=== PATIENT | female | born 1980 | race Asian ===

== ENCOUNTER → 2024-05-09 12:34 | Outpatient (REF) | payer OTHER, SELFPAY | LOC: WDC 12:34 | PROVIDERS: ATTENDING PHYSICIAN Student in an Organized Health Care Education/Training Program | DX: Z12.31 Encounter for screening mammogram for malignant neoplasm of breast (principal) | CPT/HCPCS: 77063; 77067 ==

== ENCOUNTER 2025-04-12 06:53 | Inpatient (IN) | payer OTHER, SELFPAY ==
[2025-04-11 17:14] VITALS: BP 156/97
[2025-04-11 17:58] LABS: HCG, Urine Qualitative Screen Negative
[2025-04-11 18:02] LABS: Hematocrit 34.6 % (37.0-47.0); Hemoglobin 12.1 g/dL (12.0-16.0); Mean Corp Hgb Conc. 35.0 g/dL (33.0-37.0); Mean Corpuscular Volume 87.2 fL (81.0-99.0); Nucleated Red Blood Cells % 0 %; Platelet Count 142 10^3/uL (130-400); Red Cell Dist. Width 15.1 % (11.5-14.5)
--- NOTE | 2025-04-11 18:04 | ED.GENMED ---
History of Present Illness
<Ravin Edwards PA-C - Last Filed: 04/16/25 08:47>
General
Chief Complaint: Crisis Evaluation
Source: patient
Exam Limitations: none
Time Seen by Provider: 04/11/25 17:30
History of Present Illness
History of Present Illness:
45-year-old female otherwise healthy presents with and mother who states the patient has been going through mental health crisis. Patient admits to hearing voices that are laughing at her. She was convinced she had a baby inside of her and
she started poking herself with a pair of scissors. She also admits to cutting her wrist today with a pair of scissors. 3 days ago she states she took a half a bottle of Tylenol in an attempt to hurt herself. She admits to vomiting shortly after
doing this. She denies chest pain or shortness of breath. She does not take any medications regularly. She has a history of alcohol abuse. Last alcoholic beverage was about 3 weeks ago. She admits to suicidal thoughts. She denies thoughts of
harming others. She is here voluntarily
Phy Exam
<Ravin Edwards PA-C - Last Filed: 04/16/25 08:47>
Physical Exam
Physical Exam:
General: Well-appearing female no acute respiratory distress
HEENT: Normocephalic, atraumatic
Heart: Regular rate and rhythm
Lungs: Clear no wheeze
Skin: Superficial self-inflicted lacerations in the transverse direction across the volar left wrist. Multiple small abrasions/lacerations to the abdomen. All superficial in nature
Abdomen is soft nontender nondistended
Psychiatric exam: Admits to suicidal thoughts admits to auditory hallucinations. Admits to taking Tylenol in excess several days ago. Denying thoughts of harming others
Course
<Ravin Edwards PA-C - Last Filed: 04/16/25 08:47>
Orders/Labs/Results
Orders:
Orders
04/11/25 Breakfast
Regular
At Your Request: Full Participation
Does patient need a safe tray?: Yes
04/11/25 17:22
1:1 Observation - Suicide/ Violent Behavior As Directed
04/11/25 17:29
Test Result ONCE
04/11/25 17:46
Acetaminophen Urgent
Alcohol Urgent
Complete Blood Count/With Diff Urgent
Comprehensive Metabolic Panel Urgent
HCG, Urine Qualitative Screen Urgent
Date Specimen was Collected: 04/11/25
Time Specimen was Collected: 17:28
Lipase Urgent
Comment: ADD ON
Magnesium Urgent
Comment: ADD ON
Salicylate Urgent
Urine Drug Abuse Screen Urgent
Date Specimen was Collected: 04/11/25
Time Specimen was Collected: 17:28
04/11/25 18:28
Add On- LAB Urgent
Tests Added?: lipase
04/11/25 18:50
Electrocardiogram (*1) Urgent
Reason for Study: Chest Pain
EKG- Treatment ONCE
04/11/25 18:53
Potassium Chloride [KCl] 40 meq PO NOW STA
04/11/25 18:55
Add On- LAB Urgent
Tests Added?: magnesium
04/11/25 19:15
Potassium Chloride [KCl] 40 meq 0.9% Sodium Chloride 250 ml [Nss] 250 ml IV NOW
04/11/25 19:38
diazePAM [Valium Injection] 5 mg IV NOW STA
04/11/25 20:43
Admit/Transfer Patient As Directed
Co-Sign Provider:
Level of Care: Observation services
Assign to:: Telemetry
Physician / Group: lon
Diagnosis: sucidial thoughts
Reason for Telemetry: Other
Other Reason for Telemetry: hypokalemia
Date to Stop Telemetry: 04/13/25
Time to Stop Telemetry: 11:00
Reason for Hospitalization: hypokalemia
sucidal thoughts
PRN Pain Medication Management As Directed
May give lesser potent ordered pain med per pt: Yes
preference::
Protocol:: Medication orders for pain may be administered in a
manner that supports deferring to patient preference
when the pt is:
- Requesting an ordered lesser potent pain medication.
Least to most potent pain medications are defined
as: acetaminophen < NSAID < tramadol < opioids
(morphine, oxycodone, hydromorphone).
- Requesting a lesser dose of the same medication IF
ORDERED.
- Requesting a less intrusive route of administration
if both routes are prescribed by the provider (PO <
IV).
04/11/25 20:44
Code Status As Directed
Resuscitation Status: Full Code
04/11/25 20:48
Acetylcysteine [Acetadote] 7,620 mg 0.45% Sodium Chloride 250 ml [0.45%NaCl] 200 ml IV NOW
04/11/25 20:57
diazePAM [Valium Injection] 5 mg IV NOW STA
04/11/25 21:18
Consult Psychiatry [PSYCHIATRY CONSULT] Routine
Consulting Provider: Kal Baird
Was physician already notified: Yes
04/11/25 21:43
Bisacodyl [Dulcolax] 10 mg RECTAL [id number] PRN
Docusate W/Senna [Senokot-S] 1 tablet PO BIDPRN PRN
Polyethylene Glycol Powder [Miralax] 17 grams PO DAILYPRN PRN
diazePAM [Valium Injection] 5 mg IV Q6HPRN PRN
04/11/25 21:43
Activity As Directed
Activity Level: As Tolerated
Vital Signs As Directed
Frequency: Per unit guidelines
DX Deep Vein Thrombosis Video Routine
04/11/25 22:00
Acetylcysteine [Acetadote] 2,540 mg 0.45% Sodium Chloride 500 ml [0.45%NaCl] 500 ml IV ONCE
04/11/25 23:07
Case Management Consult ONCE
Case Management Consult: Suicide Risk
04/12/25 00:41
Potassium Stat
04/12/25 02:04
diazePAM [Valium Injection] 5 mg IV NOW STA
04/12/25 06:00
Acetylcysteine [Acetadote] 5,080 mg 0.45% Sodium Chloride 1000 ml [0.45%NaCl] 1,000 ml IV ONCE
04/12/25 06:52
Consult Gastroenterology [GASTROINTESTINAL CONSULT] Routine
Consulting Provider: Deangelo Kc
Was physician already notified: Yes
Reason for consult: Elevated liver enzymes
04/12/25 07:39
Comprehensive Metabolic Panel IN AM
04/12/25 18:00
Enoxaparin Sodium [Lovenox] 40 mg SC QPM
04/13/25 11:00
DC Protocol for Telemetry ONCE
Abnormal Lab Results
04/11/25
17:46
RBC 3.97 L 10^6/uL
(4.20-5.40)
Hct 34.6 L %
(37.0-47.0)
RDW 15.1 H %
(11.5-14.5)
MPV 11.2 H fL
(7.4-10.4)
Absolute Lymphs (auto) 0.7 L 10^3/uL
(1.2-3.4)
Neutrophils % 80.9 H %
(42.2-75.2)
Lymphocytes % 9.3 L %
(20.5-51.1)
Potassium 2.6 L* mmol/L
(3.5-5.1)
Glucose 121 H mg/dl
(70-99)
Magnesium 2.4 H mg/dl
(1.6-2.3)
AST 404 H U/L
(14-36)
ALT 541 H* U/L
(0-35)
Salicylates < 1.0 L mg/dl
(2.0-20.0)
Acetaminophen < 10 L ug/ml
(10-30)
04/11/25 17:46
04/12/25 00:41
Vital Signs
Initial and Last Documented VS:
Initial Vital Signs
Temp Pulse Resp BP Pulse Ox
98.2 F 90 16 156/97 100
04/11/25 17:14 04/11/25 17:14 04/11/25 17:14 04/11/25 17:14 04/11/25 17:14
Last Documented Vital Signs
Temp Pulse Resp BP Pulse Ox
97.9 F 85 16 146/92 99
04/13/25 15:25 04/13/25 15:25 04/13/25 15:25 04/13/25 15:25 04/13/25 15:25
<Juanita Landin MD - Last Filed: 04/11/25 21:42>
Orders/Labs/Results
Orders:
Orders
04/11/25 Breakfast
Regular
At Your Request: Full Participation
Does patient need a safe tray?: Yes
04/11/25 17:22
1:1 Observation - Suicide/ Violent Behavior As Directed
04/11/25 17:29
Test Result ONCE
04/11/25 17:46
Acetaminophen Urgent
Alcohol Urgent
Complete Blood Count/With Diff Urgent
Comprehensive Metabolic Panel Urgent
HCG, Urine Qualitative Screen Urgent
Date Specimen was Collected: 04/11/25
Time Specimen was Collected: 17:28
Lipase Urgent
Comment: ADD ON
Magnesium Urgent
Comment: ADD ON
Salicylate Urgent
Urine Drug Abuse Screen Urgent
Date Specimen was Collected: 04/11/25
Time Specimen was Collected: 17:28
04/11/25 18:28
Add On- LAB Urgent
Tests Added?: lipase
04/11/25 18:50
Electrocardiogram (*1) Urgent
Reason for Study: Chest Pain
EKG- Treatment ONCE
04/11/25 18:53
Potassium Chloride [KCl] 40 meq PO NOW STA
04/11/25 18:55
Add On- LAB Urgent
Tests Added?: magnesium
04/11/25 19:15
Potassium Chloride [KCl] 40 meq 0.9% Sodium Chloride 250 ml [Nss] 250 ml IV NOW
04/11/25 19:38
diazePAM [Valium Injection] 5 mg IV NOW STA
04/11/25 20:43
Admit/Transfer Patient As Directed
Co-Sign Provider:
Level of Care: Observation services
Assign to:: Telemetry
Physician / Group: lon
Diagnosis: sucidial thoughts
Reason for Telemetry: Other
Other Reason for Telemetry: hypokalemia
Date to Stop Telemetry: 04/13/25
Time to Stop Telemetry: 11:00
Reason for Hospitalization: hypokalemia
sucidal thoughts
PRN Pain Medication Management As Directed
May give lesser potent ordered pain med per pt: Yes
preference::
Protocol:: Medication orders for pain may be administered in a
manner that supports deferring to patient preference
when the pt is:
- Requesting an ordered lesser potent pain medication.
Least to most potent pain medications are defined
as: acetaminophen < NSAID < tramadol < opioids
(morphine, oxycodone, hydromorphone).
- Requesting a lesser dose of the same medication IF
ORDERED.
- Requesting a less intrusive route of administration
if both routes are prescribed by the provider (PO <
IV).
04/11/25 20:44
Code Status As Directed
Resuscitation Status: Full Code
04/11/25 20:48
Acetylcysteine [Acetadote] 7,620 mg 0.45% Sodium Chloride 250 ml [0.45%NaCl] 200 ml IV NOW
04/11/25 20:57
diazePAM [Valium Injection] 5 mg IV NOW STA
04/11/25 21:18
Consult Psychiatry [PSYCHIATRY CONSULT] Routine
Consulting Provider: Kal Baird
Was physician already notified: Yes
04/11/25 21:43
Bisacodyl [Dulcolax] 10 mg RECTAL [id number] PRN
Docusate W/Senna [Senokot-S] 1 tablet PO BIDPRN PRN
Polyethylene Glycol Powder [Miralax] 17 grams PO DAILYPRN PRN
diazePAM [Valium Injection] 5 mg IV Q6HPRN PRN
04/11/25 21:43
Activity As Directed
Activity Level: As Tolerated
Vital Signs As Directed
Frequency: Per unit guidelines
DX Deep Vein Thrombosis Video Routine
04/11/25 22:00
Acetylcysteine [Acetadote] 2,540 mg 0.45% Sodium Chloride 500 ml [0.45%NaCl] 500 ml IV ONCE
04/11/25 23:07
Case Management Consult ONCE
Case Management Consult: Suicide Risk
04/12/25 00:41
Potassium Stat
04/12/25 02:04
diazePAM [Valium Injection] 5 mg IV NOW STA
04/12/25 06:00
Acetylcysteine [Acetadote] 5,080 mg 0.45% Sodium Chloride 1000 ml [0.45%NaCl] 1,000 ml IV ONCE
04/12/25 06:52
Consult Gastroenterology [GASTROINTESTINAL CONSULT] Routine
Consulting Provider: Deangelo Kc
Was physician already notified: Yes
Reason for consult: Elevated liver enzymes
04/12/25 07:39
Comprehensive Metabolic Panel IN AM
04/12/25 18:00
Enoxaparin Sodium [Lovenox] 40 mg SC QPM
04/13/25 11:00
DC Protocol for Telemetry ONCE
Abnormal Lab Results
04/11/25
17:46
RBC 3.97 L 10^6/uL
(4.20-5.40)
Hct 34.6 L %
(37.0-47.0)
RDW 15.1 H %
(11.5-14.5)
MPV 11.2 H fL
(7.4-10.4)
Absolute Lymphs (auto) 0.7 L 10^3/uL
(1.2-3.4)
Neutrophils % 80.9 H %
(42.2-75.2)
Lymphocytes % 9.3 L %
(20.5-51.1)
Potassium 2.6 L* mmol/L
(3.5-5.1)
Glucose 121 H mg/dl
(70-99)
Magnesium 2.4 H mg/dl
(1.6-2.3)
AST 404 H U/L
(14-36)
ALT 541 H* U/L
(0-35)
Salicylates < 1.0 L mg/dl
(2.0-20.0)
Acetaminophen < 10 L ug/ml
(10-30)
04/11/25 17:46
04/12/25 00:41
Vital Signs
Initial and Last Documented VS:
Initial Vital Signs
Temp Pulse Resp BP Pulse Ox
98.2 F 90 16 156/97 100
04/11/25 17:14 04/11/25 17:14 04/11/25 17:14 04/11/25 17:14 04/11/25 17:14
Last Documented Vital Signs
Temp Pulse Resp BP Pulse Ox
97.9 F 85 16 146/92 99
04/13/25 15:25 04/13/25 15:25 04/13/25 15:25 04/13/25 15:25 04/13/25 15:25
<Ravin Edwards PA-C - Last Filed: 04/16/25 08:47>
MDM/Problems Addressed
Differential Diagnosis Includes:
Patient here for suicidal ideation and new onset hallucinations. Concern for new psychotic disorder versus depression. All of the self-inflicted lacerations are superficial and do not require any sutures or closure. Will check labs and Tylenol
level. Crisis consult placed
<CL Gray Last Filed: 04/16/25 08:47>
*Pulse Oximetry
SaO2: 100
Oxygen Mode of Delivery: Room air
Patient hypoxic: no
*Critical Care Note
Total Time (30-74mins, 75-104mins- exclusive of procedures): Not Applicable
<Ravin Edwards PA-C - Last Filed: 04/16/25 08:47>
Update Note
Update Note:
Labs demonstrate acute hypokalemia with a value of 2.6. LFTs are elevated as well. Crisis saw the patient who agrees the patient would benefit from inpatient psychiatric treatment when medically stable. 40 mg of IV and p.o. potassium was ordered.
Patient was getting quite anxious while here. IV Valium was ordered which tended to help. Tylenol level here is undetectable. Alcohol level here is undetectable. Chest plan with patient and in the room. Will admit
ED Attending Note
<Ravin Edwards PA-C - Last Filed: 04/16/25 08:47>
-
Portions of this chart may have been created with voice recognition software.� Occasional wrong word or��sound alike� substitutions may have occurred due to the inherent limitations of voice recognition software.
<Juanita Landin MD - Last Filed: 04/11/25 21:42>
ED Attending Note
I performed a history and physical exam of patient and discussed management with resident, I reviewed resident's note and agree with documented findings and plan of care.: Yes
ED Attending Note:
Patient appears well and nontoxic. Lungs are clear. Abdomen is soft and nontender. Patient is calm and cooperative
Discharge Plan
Departure
Patient Disposition: Admit
Date of Disposition: 04/11/25
Time of Disposition: 20:08
Presentation/result/management discussed w/ accepting MD/DO: Hospitalist
Discharge Problem:
Acute hypokalemia
Interventions
Interventions:
*Risk Screen - Suicide Last Done: 04/11/25 17:19
*General Assessment Last Done: 04/11/25 18:14
*Neglect/Abuse Screening Last Done: 04/11/25 18:14
*ED- Fall Risk Assessment Last Done: 04/11/25 18:14
*ED COVID-19 Vaccine History Last Done: 04/11/25 18:14
*Nursing Disposition Last Done: 04/11/25 22:00
ED-Psychological Assessment Last Done: 04/11/25 17:56
Discharge Date and Time
Discharge Date/Time: 04/11/25 22:01
[2025-04-11 18:26] LABS: ALT (SGPT) 541 U/L (0-35); AST (SGOT) 404 U/L (14-36); Acetaminophen < 10 ug/ml (10-30); Albumin 4.3 g/dl (3.5-5.0); Alkaline Phosphatase 54 U/L (38-126); Blood Urea Nitrogen 10 mg/dl (7-17); Calcium 9.1 mg/dl (8.4-10.2); Carbon Dioxide 28 mmol/L (22-30); Chloride 99 mmol/L (98-107); Glucose 121 mg/dl (70-99); Potassium 2.6 mmol/L (3.5-5.1); Salicylate < 1.0 mg/dl (2.0-20.0); Sodium 135 mmol/L (135-145); Total Protein 7.0 g/dl (6.3-8.2); eGFR > 60.00
[2025-04-11 18:40] LABS: Lipase 93 U/L (23-300)
[2025-04-11 19:15] LABS: Magnesium 2.4 mg/dl (1.6-2.3)
[2025-04-11] MEDS: KCL 40 MEQ PO (19:19)
[2025-04-11] MEDS: KCL 270 MEQ IV (19:28)
[2025-04-11] MEDS: VALIUM INJECTION 5 MG IV ×2 (19:41→21:29)
--- NOTE | 2025-04-11 20:07 | HPS.HSE ---
Addendum entered and electronically signed by Ilya Stone DO 04/11/25 21:25:
Patient is a 45y F with PMH significant for depression and alcohol use disorder who presents to ED for evaluation of paranoia, agitation and suicide attempt at home. History obtained from patient and family at the bedside.
Patient / family just returned from a trip to [place] last weekend. Patient returned separate from / after her and daughters. She has a reported history of significant alcohol intake with a liter of alcohol per day on average. Her last
drink was reportedly 3 weeks ago. Since return home she has been restless, agitated, paranoid. She has stated that she hears voices and she is very suspicious of those around her - including family.
Today patient attempted to cut her wrist with a pair of scissors. She also stabbed at her abdomen stating that their was a baby in there. also noted today that 1/2 bottle of Tylenol was missing.
Apparently patient took this three days ago - also in an attempt to end her life. Patient states that she vomited very shortly after ingesting the Tylenol tabs.
Patient has history of depression and alcohol use disorder - but no prior suicidal ideations, psychiatric hospitalizations, etc.
In the ED, patient is restless / anxious and agitated.
Ass:
Suicidal Ideation / Attempt
Paranoia / ? Schizophrenia v schizoaffective disorder
Alcohol Use Disorder
Acetaminophen Overdose
Abnormal LFTs
Hypokalemia
Plan:
Admit for further evaluation and treatment.
Replace potassium IV and PO - repeat labs round midnight and provide additional replacement if necessary.
Mg level is adequate.
IV BZDs as needed for agitation / anxiety.
Formal Psych eval in the AM.
Patient amenable to inpatient psych treatment at present.
Alcohol level today is undetectable.
Acetaminophen level is undetectable 3 days after reported ingestion.
With abnormal LFTs, will pursue Acetadote course - though not likely to be very effective this long after ingestion.
Follow for changes in LFTs, new / worsening symptoms, etc.
Original Note:
Family Physician
-
Family Physician:
Chief Complaint
-
sucidial thoughts
History of Present Illness
45 year old with PMH for alcohol abuse, depression presented to us with suicidal attempt from home. patient just came back from [place] last weekend and has not slept very well since she came back. as per very restless. noted her
talking to herself. she startle with very little noise. she seemed very scared. she was suspiciously staring at him. today the found that she took half bottle of Tylenol. today she cut her wrist with a pair scissors. she also poked herself
with pair of scissors.thinking she has babies in her. her last alcoholic beverage was 3 weeks ago.
upon arrival noted potassium 2.6. Patient received acetylcysteine, Valium, potassium chloride, KCl IV in the ER. Admitting for further management
Medical History
Past Medical History
Past Medical History: Reports Other
Additional Past Medical History:
alcohol abuse
Depression
Past Surgical History: Reports None
Social History
Tobacco: Non-smoker
Alcohol: Chronic Alcoholic
Drug: None
Personal:
Living: With Family
Family History
Family History: Not pertinent
Allergies / Home Medications
Allergies reflects when Allergies were last updated in [facility].
Home Medications with original date entered in [facility]
Allergy/Medication List:
Allergies
Allergy/AdvReac Type Severity Reaction Status Date / Time
No Known Allergies Allergy Unverified 04/11/25 17:19
Review of Systems
-
Constitutional: Reports No Symptoms
EENT: Reports No Symptoms
Respiratory: Reports No Symptoms
Cardiac: Reports No Symptoms
Abdomen/GI: Reports No Symptoms
: Reports No Symptoms
Musculoskeletal: Reports No Symptoms
Skin: Reports No Symptoms
Neurological: Reports No Symptoms
Endocrine: Reports No Symptoms
Hematologic/Lymphatic: Reports No Symptoms
Psych: Reports No Symptoms
Physical Exam
Vital Signs
Vital Signs
Temp Pulse Resp BP Pulse Ox
98.2 F 90 16 156/97 100
04/11/25 17:14 04/11/25 17:14 04/11/25 17:14 04/11/25 17:14 04/11/25 18:10
Physical Exam
General: Well Developed, Well Nourished and No Apparent Distress
HEENT: NormoCephalic, Moist mucous membranes and Atraumatic
Respiratory: Clear
Cardiac: S1/S2 and Regular Rhythm; No Murmur or Rub
GI: Soft, Non Tender, Non Distended and Normal Bowel Sounds; No Organomegaly
Rectal: Deferred by Provider
Musculoskeletal: No Clubbing, No Cyanosis and No Edema
Skin: Rash and Other (wrist cut)
Neuro: AO x 3 and Nonfocal/grossly intact
Psych: Calm
Laboratory Results
-
04/11/25 17:46
04/11/25 17:46
Laboratory Results
Total Bilirubin 1.1 mg/dl (0.2-1.3) 04/11/25 17:46
AST 404 U/L (14-36) H 04/11/25 17:46
ALT 541 U/L (0-35) H* 04/11/25 17:46
Alkaline Phosphatase 54 U/L (38-126) 04/11/25 17:46
Lipase 93 U/L (23-300) 04/11/25 17:46
Data Reviewed
-
Lab Data: Labs Reviewed by me
Impression/Plan
-
#suicidal thoughts
#Tylenol intentional overdose
-psych consulted
-1:[address]
-vallum prn
-acetylcysteine continued
#hypokalemia
-k 2.6
-iv kcl in ER
-BMp in am
#transaminitis
#hxt of chronic alcohol abuse, last drink 3 weeks ago.
-AST 404, [id number]
- Patient denies any abdominal pain
- Trend LFTs
# DVT prophylaxis
- Lovenox
# CODE STATUS
- Full code
[2025-04-11 20:25] VITALS: BP 142/91
[2025-04-11 21:45] VITALS: BP 136/82; BMI 19.2
--- NOTE | 2025-04-11 22:00 | PTCARENOTE ---
Pt arrived to floor from ED with at her bedside and helped with admission Questions. Pt appeared slightly sedated, yet restless and fidgety. Pt withdrawn but would answer questions mostly appropriately. pt appears to give understanding, yet
in a paranoid state, odd impulsive behaviors (grabbing at equipment, looking at things as if in bewilderment), ruminating thoughts, understanding waxes and wanes and needed interventions and plan of care explained repeatedly. VSS, placed on tele,
PCT assigned to room for 1:1 observation.
[2025-04-12] MEDS: ACETADOTE 238.1 MG IV (00:15)
[2025-04-12] MEDS: VALIUM INJECTION 5 MG IV (01:04)
[2025-04-12 01:05] LABS: Potassium 4.0 mmol/L (3.5-5.1)
--- NOTE | 2025-04-12 02:00 | PTCARENOTE ---
Pt fell asleep for a short period of time. When pt awakened for schedule labs at 0030 pt became increasing paranoid, agitated, impulsive and tearful. PRN agitation meds administered. Pt agitation continued, persistently refusing tele monitor, not
believing its real. Pt refusing IVPB medications, not believing that the IV pole is working right or that the medication she is getting is correct. Many unsuccessful attempts made to try educate/reassure pt, unfortunately these attempts only
agitated pt more. Pt began ruminating about seeing a social services designee, calling several of the 1800 support #s listed in the welcome folder requesting help to leave. [employer] made aware of pt agitation and refusal of medications and tele monitor. Advised to
monitor pt off of IVPB med and off of tele for now, with PRN medications for agitation as needed. Pt appeared to be content with this course of action and complied with returning to bed to try and rest. 1:1 maintained.
[2025-04-12 03:55] VITALS: BP 152/95
--- NOTE | 2025-04-12 06:29 | PTCARENOTE ---
Pt behavior becoming increasing bizarre and restless throughout night. Pt has been in and out of bed every few mins, brushed her teeth 5 times, pacing the room, ruminating about the keyboard for the tv, hallucinating about a man in the room.
Attempted to ask pt about PRN medication, but Pt refusing to let staff touch her after getting last set of VS, at which time the pt falsely accused PCT of trying to give her 'unauthorized medications' when PCT attempted to take her temperature. SHANK BURNISHER
aware
[2025-04-12] MEDS: ACETADOTE IV (07:49)
[2025-04-12] MEDS: NSS (PRESERVATIVE FREE) IV (07:56)
[2025-04-12] MEDS: PROTONIX IV IV (07:57)
[2025-04-12 08:20] LABS: INR 1.10; PT 14.5 Sec (11.4-14.6)
[2025-04-12 08:40] LABS: ALT (SGPT) 464 U/L (0-35); AST (SGOT) 212 U/L (14-36); Albumin 4.6 g/dl (3.5-5.0); Alkaline Phosphatase 55 U/L (38-126); Blood Urea Nitrogen 9 mg/dl (7-17); Calcium 9.7 mg/dl (8.4-10.2); Carbon Dioxide 23 mmol/L (22-30); Chloride 106 mmol/L (98-107); Estimated Creatinine Clearance 91 ml/min; Glucose 102 mg/dl (70-99); Potassium 3.7 mmol/L (3.5-5.1); Sodium 139 mmol/L (135-145); Total Protein 7.4 g/dl (6.3-8.2); eGFR > 60.00
[2025-04-12 08:43] VITALS: BP 130/85
[2025-04-12] MEDS: ACETADOTE 1025.4 MG IV (08:50)
--- NOTE | 2025-04-12 09:42 | W.PN.HOSP.TC ---
Today's Communication/Plan
-
PT/INR
repeat LFT, f/w GI recommendations
Use PRN Diazepam
Thiamin
f/w Psych recommendations
Assessment / Plan
Assessment / Plan
Physical Exam
General: Well Developed, Well Nourished and No Apparent Distress
HEENT: NormoCephalic, Moist mucous membranes and Atraumatic
Respiratory: Clear
Cardiac: S1/S2 and Regular Rhythm; No Murmur or Rub
GI: Soft, Non Tender, Non Distended and Normal Bowel Sounds; No Organomegaly
Rectal: Deferred by Provider
Musculoskeletal: No Clubbing, No Cyanosis and No Edema
Skin: Rash and Other (wrist cut)
Neuro: AO x 3 and Nonfocal/grossly intact
Psych: Calm
A/P:
#suicidal thoughts
She seems anxious at times
but willing to follow commands
f/w Psych recommendations
PRN Diazepam
#Tylenol intentional overdose
Do stat PT/INR to assess liver function
Repeat LFT later today also. LAST/ALT seem to start trending down
Consult GI
Add PPI
-acetylcysteine continued
#hypokalemia
Resolved.
history of ETOH in recent past
Will add thiamin
# DVT prophylaxis
- Lovenox
# CODE STATUS
- Full code
Total time spent to see the patient, examine the patient, review data and lab results, discuss treatment plan with patient, at bed side, nursing staff around 55 minutes
Anticipated Discharge: > 48 hours
Subjective/Interval History
-
Date of Service: April 12, 2025
No chest pain
No nausea
No abdominal pain
Objective Data
-
Labs:
Laboratory Results
04/12/25 04/12/25
00:41 07:39
PT 14.5
INR 1.10
Sodium 139
Potassium 4.0 D 3.7
Chloride 106
Carbon Dioxide 23
BUN 9
Creatinine 0.6
Glucose 102 H
Calcium 9.7
Total Bilirubin 1.2
AST 212 H
ALT 464 H
Alkaline Phosphatase 55
Vital Signs:
Vital Signs
Temp Pulse Resp BP Pulse Ox
98.3 F 93 20 130/85 100
04/12/25 08:43 04/12/25 08:43 04/12/25 08:43 04/12/25 08:43 04/12/25 08:43
I&O
04/11/25 04/12/25 04/13/25
06:59 06:59 06:59
Intake Total 960 / 960 240 / 240
Balance 960 / 960 240 / 240
[2025-04-12 11:36] VITALS: BP 158/100
--- NOTE | 2025-04-12 12:12 | W.PN.UPDATE ---
Update Note
Progress Note Update
Psychiatric Evaluation dictated.
Patient has been drinking heavily up to one bottle of spirits while in [place] on vacation for about 2 weeks, came back on 04/05 and stopped. Since than noticed psychotic symptoms which she never had before particularly suspecting he implanted
some device in her abdomen and that he has cameras in his eyes. On Sunday she took O?D of Tylenol, abut half bottle, not sure how many, level on admission negligible. on Sunday she superficially cut her wrist and pricked her abdomen also
superficially.
Heavy drinking has been going on for 3 years, initially did not know but found out prior to June 2024 , at that point she went to rehab in [place]. Maintained sobriety till october 2024 when she relapsed on vacation in [facility].
Currently is rather suspicious , extra vigilant and difficult to interview needing redirection. Worries about who wants a divorce and possibly not being able to see her children, 13 anf 10 of age. is worried about her having driven
drunk with the children, wants a divorce but also will help with getting her treatment.
She is at this time not sure id she wants to live without access to her children.
Question is as to wheter this recent psychosis is related to stoping her drinking abrumpty although she has no physical symptoms of withdrawal.
I would recommend inpatient dual diagnosis unit.
--- NOTE | 2025-04-12 12:24 | CON.GI ---
Addendum entered and electronically signed by Deangelo Kc MD 04/12/25 13:49:
I saw and evaluated the patient. I reviewed the resident�s note and agree with findings and plan as documented in the resident�s note.
45yo female presents after attempting to harm herself and took 1/2 bottle Tylenol on 04/08. She has hx heavy EtOH and went to in rehab last fall, had relapsed on most recent trip to [facility]. Has not drank since returning to 04/05. Denies abd
pain, n/v. Has exhibited paranoid behavior. reports she did not sleep well since returning from [facility]. No prior know hx liver disease. Tylenol <10 yesterday at 5pm, 3 days after reported ingestion. Bili 1.1, alk phos 54, INR 1.1, all
normal. AST 404 on admission, repeat 212 this am. ALT 541 on admission, 464 on repeat.
REC:
Currently on NAC protocol and due to finish around midnight
AST/ALT trending down since admission. Rest of LFTs and INR normal
Check repeat LFTs at 6pm and if continuing to improve, can finish NAC at midnight
Original Note:
Consultation
-
Date/Time Consultation Requested: 04/12/25 06:52
Date/Time Consultation Performed: 04/12/25 11:30
Requesting Provider: Yair Badillo MD
Performing Provider: Arian Orozco DO (Resident); Deangelo Kc MD
Reason for Consultation: Elevated Liver Enzymes
Medical History
Chief Complaint / HPI
Chief Complaint: Suicidal Thoughts
History of Present Illness:
45F with a PMHx significant for alcohol abuse, and major depressive disorder who presented to the emergency department s/p suicide attempt. Per primary history, the patient just came back from [place] last weekend and has been having sleeping issues
and has been restless, appearing to be talking to herself, agitated and paranoid. She is very suspicious of those around her. Yesterday, the patient attempted to cut her wrists with a pair of scissors and attempted to stab her abdomen thinking there
was a baby inside. The endorsed a bottle of Tylenol that had gone missing. In the emergency department, patient had an undetectable EtOH level, acetaminophen level < 10, elevated LFTs. Patient was started on NAC out of caution and we were
consulted to comment on duration of treatment.
Patient is cooperative with the interview but seems unconfident in some of her answers. On interview, the patient endorses that she took the Tylenol 4 days ago. She notes taking a handful of pills and ingesting them but then vomiting them shortly
after. She does not know the exact number of pills or the strength of the pills. She endorses not having any abdominal pain, nausea, vomiting, changes in stools, jaundice, icterus or easy bleeding/bruising between time of ingestion and presentation.
She describes her drinking history of drinking as 'opening a bottle of champagne to have one glass, but ending up drinking the bottle'. She says that her last drink was approximately 1 week ago. She was in inpatient rehab in June and stopped
drinking after. She relapsed during her trip to [place]. She endorses one drinking episode during her trip where she thinks she only shared a bottle of wine with a friend and then proceeded to throw up. She denies abdominal pain, nausea or vomiting at
this time.
Patient does not take any OTC or rx medications on a daily basis but notes that her daughter takes lisdexamfetamine for ADHD and she has been taking some of her pills recently. She endorses taking some vitmain supplements, but denies any herbal
medications. Notes drinking teas, but denies any herbal varieties.
Past Medical History
Past Medical History: Other (EtOH abuse, depression)
Past Surgical History: None
Social History
Tobacco: Non-Smoker
Alcohol: Chronic Alcoholic
Drug: None
Personal:
Living: With Family
Family History
Family History: Other (Denies a family history of liver disease or easy bleeding. )
Allergies / Home Medications
Allergy/AdvReac Type Severity Reaction Status Date / Time
No Known Allergies Allergy Unverified 04/11/25 17:19
Review of Systems
-
History Source: Patient
All other systems: A 12 pt ROS was Negative except as stated above in HPI
Vital Signs
Temp Pulse Resp BP Pulse Ox
98.3 F 76 20 158/100 100
04/12/25 11:36 04/12/25 11:36 04/12/25 11:36 04/12/25 11:36 04/12/25 11:36
Physical Exam
Exam
General: Comfortable and Other (Does not appear to be in pain. Cooperative. Appears suspicious. Poor eye contact. )
HEENT: Normocephalic and Anicteric
GI: Soft, Non Tender, Non Distended and Normal Bowel Sounds
Skin: Warm and Other (Nonjaundiced. )
Neuro: Awake, Alert, Oriented and Other (No asterixis, EOMI intact without nystagmus)
Psych: Calm and Other (appears suspicious; tracks sudden movements or sounds )
Results
WBC 7.0 10^3/uL (4.8-10.8) 04/11/25 17:46
Hgb 12.1 g/dL (12.0-16.0) 04/11/25 17:46
Hct 34.6 % (37.0-47.0) L 04/11/25 17:46
MCV 87.2 fL (81.0-99.0) 04/11/25 17:46
Plt Count 142 10^3/uL (130-400) 04/11/25 17:46
Absolute Neuts (auto) 5.7 10^3/uL (1.4-6.5) 04/11/25 17:46
PT 14.5 Sec (11.4-14.6) 04/12/25 07:39
INR 1.10 04/12/25 07:39
Sodium 139 mmol/L (135-145) 04/12/25 07:39
Potassium 3.7 mmol/L (3.5-5.1) 04/12/25 07:39
Chloride 106 mmol/L (98-107) 04/12/25 07:39
Carbon Dioxide 23 mmol/L (22-30) 04/12/25 07:39
BUN 9 mg/dl (7-17) 04/12/25 07:39
Creatinine 0.6 mg/dL (0.6-1.0) 04/12/25 07:39
Calcium 9.7 mg/dl (8.4-10.2) 04/12/25 07:39
Total Bilirubin 1.2 mg/dl (0.2-1.3) 04/12/25 07:39
AST 212 U/L (14-36) H 04/12/25 07:39
ALT 464 U/L (0-35) H 04/12/25 07:39
Alkaline Phosphatase 55 U/L (38-126) 04/12/25 07:39
Lipase 93 U/L (23-300) 04/11/25 17:46
Assessment / Plan
-
Tracy John is a 45F with a past medical history of alcohol abuse disorder s/p inpatient rehab in June and recent relapse, last drink approximately 1 week ago, and major depressive disorder who had a recent apparent suicide attempt, presenting 3
days s/p ingesting an unknown quantity of acetaminophen. Patient had an acetaminophen level of < 10 in ED, with elevated transaminases that are currently downtrending. Total Bilirubin is WNL but trending towards the ULN. INR is 1.1. Her physical
examination is not concerning for acute liver failure or hepatic encephelopathy but in the setting of acetaminophen ingestion >3 days prior, reference of the [facility] nomogram to guide NAC administration has limited value.
- Agree with NAC administration.
- Since undetectable Tylenol level and INR 1.1, NAC can be discontinued once ALT < 250, AST < 200 and a minimum of 12 hours of NAC given.
- Continue to trend LFTs. Get a direct bilirubin level.
- Ammonia level
Total Time Spent with Patient (in minutes): 40
-
-
Thank you for consultation and allowing me to participate in the patient's care. Please call the credit collections rep GI physician during the after hours with any questions or concerns.
--- NOTE | 2025-04-12 13:04 | PTCARENOTE ---
Addendum entered by Rivas Shea RN 04/12/25 13:32:
MD Badillo aware that pt is refusing Tele monitoring. Made aware at 0722 via T.T. no new orders.
Original Note:
Mid shift note: pt has been calm and cooperative for this RN. This Am pt initially refusing meds/blood draws; this RN was able to establish rapport explaining the plan of care resulting in pt accepting blood draw and starting IV medication. "Rosenda"Aby was able to reassess pt and further established trust with pt and the care team resulting in pt being agreeable to plan of care set forth for the day including touching base with psych and a Gi consult. spouse has been present at bedside
facilitating care and having appropriate conversation/interaction with pt. pt continues with paranoia which has been redirectable when present. pt has not vocalized any intent to cause harm to herself or anyone else. one to one remains at
bedside. room environment remains safe for care. plan of care continues to be followed.
--- NOTE | 2025-04-12 15:12 | CM ---
Patient seen at bedside with David
Dx: suicidal thoughts
OBS status - OBS form explained - did not wish to sign
1:1
CM consult completed suicide - psychiatry consulted
Patient lives with her and two daughters (10,13)
PLOF: Independent
Denies DME
Denies VN/has had inpatient for alcohol abuse in for 5-6 days, then went to [facility] until Aug 13
Patient seen by psychiatry-recommend inpatient dual diagnosis unit
Discussed with patient and and agreeable with inpatient.
CM called [facility] & spoke with Marquita - request fax clinicals to [phone]
PCP: Dr. Cand[facility]
Pharmacy: [facility]
PLAN: Inpatient dual diagnosis Rehab, pending acceptance/bed availability
--- NOTE | 2025-04-12 15:19 | CHAP ---
Tracy welcomed a nylon hot wire cutter visit - she was calm and in good spirits. She shared some of her life story, including the hurtful situation that led her to harm herself. She was very receptive to emotional and spiritual support, and said she would
welcome further visits. Assurance given of our on-going availability.
[2025-04-12 15:34] VITALS: BP 154/96
[2025-04-12 18:23] LABS: Ammonia < 9 umol/L (9-30)
[2025-04-12 18:27] LABS: ALT (SGPT) 332 U/L (0-35); AST (SGOT) 105 U/L (14-36); Albumin 3.9 g/dl (3.5-5.0); Alkaline Phosphatase 43 U/L (38-126); Total Protein 6.5 g/dl (6.3-8.2)
[2025-04-12 19:02] VITALS: BP 125/88
[2025-04-12 23:33] VITALS: BP 149/85
[2025-04-13] MEDS: ACETADOTE 512.7 MG IV (01:27)
[2025-04-13 03:44] VITALS: BP 138/91
[2025-04-13 07:35] LABS: ALT (SGPT) 268 U/L (0-35); AST (SGOT) 59 U/L (14-36); Albumin 3.7 g/dl (3.5-5.0); Alkaline Phosphatase 38 U/L (38-126); Total Protein 6.3 g/dl (6.3-8.2)
[2025-04-13 07:41] VITALS: BP 129/91
[2025-04-13] MEDS: PROTONIX IV 40 MG IV (08:33)
[2025-04-13] MEDS: VITAMIN B1 200 MG PO (08:33)
[2025-04-13] MEDS: NSS (PRESERVATIVE FREE) 10 ML IV (08:34)
--- NOTE | 2025-04-13 09:29 | W.PN.HOSP.TC ---
Today's Communication/Plan
-
Discharge to inpatient psychiatric unit today
Assessment / Plan
Assessment / Plan
Assessment/plan:
#Suicidal ideation with plan
Appreciate psychiatry input, recommend treatment at psychiatric facility at dual diagnosis unit
Medically stable for discharge to psychiatric facility today
#Tylenol intentional overdose
#Drug-induced transaminitis
Status post N-acetylcysteine, LFTs now downtrending
Appreciate GI input, recommend repeat LFTs in 1 week
GI has signed off
#History of alcohol dependency
Last drink 3 weeks prior to admission
Recommend permanent alcohol cessation
Will discharge patient on thiamine and folic acid
# Hypokalemia
Resolved
# DVT prophylaxis - Lovenox
# CODE STATUS - Full code
Updated at bedside 04/13
Physical Exam
General: Well Developed, Well Nourished and No Apparent Distress
HEENT: NormoCephalic, Moist mucous membranes and Atraumatic
Respiratory: Clear
Cardiac: S1/S2 and Regular Rhythm; No Murmur or Rub
GI: Soft, Non Tender, Non Distended and Normal Bowel Sounds; No Organomegaly
Musculoskeletal: No Clubbing, No Cyanosis and No Edema
Skin: Rash and Other (wrist cut)
Neuro: AO x 3 and Nonfocal/grossly intact
Psych: Calm
Anticipated Discharge: Today
Subjective/Interval History
-
Date of Service: April 13, 2025
Patient denies abdominal pain, denies nausea. No chest pain, no shortness of breath. She does admit to depression. No suicidal ideation or plan. No fever.
Objective Data
-
Labs:
Laboratory Results
04/13/25
06:40
Total Bilirubin 0.9
AST 59 H
ALT 268 H
Alkaline Phosphatase 38
Vital Signs:
Vital Signs
Temp Pulse Resp BP Pulse Ox
98.8 F 79 16 129/91 100
04/13/25 07:41 04/13/25 07:41 04/13/25 07:41 04/13/25 07:41 04/13/25 07:41
I&O
04/12/25 04/13/25 04/14/25
06:59 06:59 06:59
Intake Total 960 / 960 2655 / 2655 1008 / 1008
Balance 960 / 960 2655 / 2655 1008 / 1008
--- NOTE | 2025-04-13 09:53 | W.PN.GI.CBS2 ---
Today's Communication / Plan
-
She has completed NAC and LFTs significantly improved since admission. LFTs probably peaked prior to admission
Check LFTs 1 week after dc to confirm resolution
I stressed need for EtOH abstinence
Will sign off. Please call back if needed
Assessment / Plan
-
Impression:
Tylenol overdose ingested 04/08. Tylenol level <10 on 04/11.
EtOH use disorder
Suicide attempt
Subjective
Subjective
Date of Service: April 13, 2025
Denies any complaints. No abd pain. No n/v
Objective
Data Reviewed
Laboratory Data:
Laboratory Results
04/11/25 17:46
04/12/25 07:39
Laboratory Results
PT 14.5 Sec (11.4-14.6) 04/12/25 07:39
INR 1.10 04/12/25 07:39
Magnesium 2.4 mg/dl (1.6-2.3) H 04/11/25 17:46
Total Bilirubin 0.9 mg/dl (0.2-1.3) 04/13/25 06:40
AST 59 U/L (14-36) H 04/13/25 06:40
ALT 268 U/L (0-35) H 04/13/25 06:40
Alkaline Phosphatase 38 U/L (38-126) 04/13/25 06:40
Lipase 93 U/L (23-300) 04/11/25 17:46
Vital Signs and I&O:
Vital Signs
Temp Pulse Resp BP Pulse Ox
98.8 F 79 16 129/91 100
04/13/25 07:41 04/13/25 07:41 04/13/25 07:41 04/13/25 07:41 04/13/25 07:41
I&O
04/12/25 04/13/25 04/14/25
06:59 06:59 06:59
Intake Total 960 / 960 2655 / 2655 1008 / 1008
Balance 960 / 960 2655 / 2655 1008 / 1008
Physical Exam
Physical Exam
GI: Soft, Non Distended and Non Tender
--- NOTE | 2025-04-13 10:43 | W.PN.UPDATE ---
Update Note
Progress Note Update
pt seen by me today to review for admittion to psychiatry unit. Pt signed 201, which I filled out with her explaining concerns about alcohol, paranoia, and suicidality. Willingly signed, but worried about whether it will do any good. repeatedly
talked about how her lapse was just a brief period of time. Affect sad, some hopelessness. Reviewed with her the need for ongoing treatment for all three of the issues identified, and the need for involvement of in the treatment. signed 201
no chart, appears ready to go once bed identified. communicated with CM
--- NOTE | 2025-04-13 11:19 | CM ---
Addendum entered by Sabrina Kidd 04/13/25 15:06:
CM called [employer] insurance for authorization - Spoke with Shivani Daley
[facility] NPI #: [id number]
Dr. Harvey Chong NPI #: [id number]
AUTH APPROVAL # [id number]
Start 04/13/26 to 04/21/25, 9 days
computer publisher is Lauren Lou phone #: [phone]
Updates to fax #: [phone]
[employer] requested bio psycho social assessment today from [facility] fax #:[phone]
ALL INFORMATION GIVEN TO WHITNEY AT [facility]
updated that transport will be at 4:00pm
PLAN: [facility] INPATIENT REHAB
Fax #: [phone]
Addendum entered by Sabrina Kidd 04/13/25 13:53:
Whitney stated patient accepted at [facility] today, bed available
patient and agreeable
Transportation forms on chart, 6:30pm transport - notified Whitney at [facility]
hospitalist aware
WILL OBTAIN AUTHORIZATION with [employer]
PLAN: [facility] INPATIENT [facility]AB
Fax #: [phone]
Original Note:
Spoke with patient and
Spoke with Whitney [phone] at [facility] - has bed available today
clinicals & labs faxed to Whitney at [facility] [phone]
Voluntary Inpatient consent signed & filled out by Dr. Arroyo also faxed
Whitney called and said paperwork under medical review
PLAN: Inpatient rehab at [facility] if accepted, await call back from Whitney
[facility] Fax #: [phone]
[2025-04-13 11:24] VITALS: BP 117/77
--- NOTE | 2025-04-13 14:24 | W.DCSUMMARY ---
Discharge Summary
Discharge Data
Date of Admission: 04/12/25
Date of Discharge: 04/13/25
-
Pending Results: No
Hospital Course
Discharge diagnosis:
Suicidal ideation with plan
Intentional Tylenol overdose
Tylenol induced transaminitis
Depression
History of alcohol dependency
Hypokalemia
Consults: Psychiatry, GI
Hospital course:
45-year-old female with a past medical history of alcohol dependency and depression was admitted for intentional Tylenol overdose. Patient and family recently returned from a trip from [facility]. Patient has a history of alcohol dependency and abuse.
Her last drink was 3 weeks prior to admission. Upon returning home from her trip to [place], family reports her being agitated and restless. Patient attempted to cut her wrist with a pair of scissors. Patient also ingested a half a bottle of
Tylenol. She was seen in conjunction with GI, and received N-acetylcysteine. Her liver function tests were monitored. Her AST peaked at 404, and was 59 on the day of discharge. Her ALT was 541 upon admission, and trended down to 268. She was
counseled to permanently abstain from drinking alcohol. GI recommends repeat LFTs 1 week after discharge.
Patient was seen in conjunction with psychiatry, who recommends inpatient psychiatric treatment at dual diagnosis unit. Patient is set up with inpatient psychiatric treatment at [facility]. She is medically stable for discharge. She needs to
follow-up with her PCP 1 week after she leaves her rehab, as well as her usual psychiatrist and therapist as soon as possible.
Disposition: Inpatient psychiatric treatment facility
Discharge planning: Required 36 minutes
Discharge Plan
-
Patient Disposition: Psych Facility
Discharge Diagnosis/Procedures: Intentional overdose, suicidal ideation with plan, alcohol dependency, drug-induced transaminitis
Condition: Good
Diet: Regular
Activity: As tolerated
Driving Restrictions: As prior to admission
Blood Work: LFTs on 04/21/25
Activity Restrictions/Additional Instructions:
Recommend you permanently abstain from drinking alcohol.
Follow-up with your primary care doctor 1 week after you complete psychiatric treatment, and follow-up with your usual psychologist and therapist as soon as possible.
Referrals:
UNKNOWN - PT DOES,NOT KNOW [Family Provider]
Prescriptions:
New
thiamine HCl (vitamin B1) 100 mg tablet
100 mg PO DAILY Qty: 30 0RF
folic acid 1 mg tablet
1 mg PO DAILY Qty: 30 0RF
Discharge Orders:
Discharge Patient (As Directed); Ordered 04/13/25
Ordered By: Titus Baxter
Discharge Date and Time
Discharge Date/Time: 04/13/25 16:02
Print Language: BULGARIAN
[2025-04-13 15:25] VITALS: BP 146/92
== END 2025-04-13 16:02 | DRG 918 ==
LOC: 3 WEST ACU 06:53
PROVIDERS: Internal Medicine; Registered Nurse; ADMITTING PHYSICIAN Hospitalist; ATTENDING PHYSICIAN Family Medicine; CONSULT PHYSICIAN Psychiatry & Neurology Psychiatry; CONSULT PHYSICIAN Specialist; EMERGENCY PHYSICIAN Emergency Medicine
DX: T39.1X2A Poisoning by 4-Aminophenol derivatives, intentional self-harm, initial encounter (principal); R44.0 Auditory hallucinations; R11.10 Vomiting, unspecified; F10.20 Alcohol dependence, uncomplicated; E87.6 Hypokalemia; R74.01 Elevation of levels of liver transaminase levels; R74.8 Abnormal levels of other serum enzymes; F32.9 Major depressive disorder, single episode, unspecified; S61.522A Laceration with foreign body of left wrist, initial encounter; X78.8XXA Intentional self-harm by other sharp object, initial encounter; Y93.89 Activity, other specified; Y92.009 Unspecified place in unspecified non-institutional (private) residence as the place of occurrence of the external cause; Z63.72 Alcoholism and drug addiction in family; Z81.1 Family history of alcohol abuse and dependence
CPT/HCPCS: 80053; 80076; 80143; 80179; 80306; 81025; 82077; 82140; 83690; 83735; 84132; 85025; 85610; 93005; 96374; 96375; 99285; J0132; J7030